=== PATIENT | female | born 1935 | race Caucasian/White ===

== ENCOUNTER 2017-05-02 10:28 | Emergency (ER) | payer MEDICARE ==
[2015-11-19 06:40] VITALS: BMI 26.7
[~2017-05-02 10:28] MED LIST: ASPIRIN EC81 M1 PO; METOPROLOL TART50 MG PO; VITAMIN B-12500 MCG PO; VITAMIN D31000 UNI2 PO; ZESTORETIC 20/21 TAB PO
== END 2017-05-02 11:19 | disposition home or self-care (01) ==
LOC: D.ER 10:28
DX: J01.90 Acute sinusitis, unspecified (principal); I10 Essential (primary) hypertension